=== PATIENT | female | born 1985 | race Caucasian/White ===

== ENCOUNTER 2016-10-27 09:12 | Emergency (ER) | payer MEDICAID, MEDICARE ==
[~2016-10-27] VITALS: Ht 162.6 cm; Wt 72.6 kg
[2016-10-27 09:22] VITALS: BP 140/73
--- NOTE | 2016-10-27 09:28 | NUR ---
PT AMBULATED TO BED 5 AT THIS TIME.
--- NOTE | 2016-10-27 09:28 | NUR ---
Patient ambulated to bed 05.
--- NOTE | 2016-10-27 09:37 | NUR ---
Dr. Hidalgo evaluating patient at bedside.
--- NOTE | 2016-10-27 09:39 | NUR ---
PT CAME TO ER DUE TO LLQ ABD PAIN X2 DAYS WITH VAGINAL DISHARGE AND ODOR X2 MONTHS;PT STATES PAIN COMES AND GO;PAIN SCALE OF 8/10;NON RADIATING PAIN;DENIES CP/SOB/COUGH/N/V/F AT THIS TIME;AAOX4'NO ACUYTE DISTRESS NOTED AT THIS TIME;HOB ELEVATED;NEEDS ATTENDED;SAFETY MEASURES DONE;DR YORK AT BEDSIDE.
[2016-10-27] MEDS ORDERED: KETOROLAC 60 MG/2 ML VIAL IM ONE ×2 (09:45→10:01)
--- NOTE | 2016-10-27 10:01 | NUR ---
PT REFUSED MEDICATION;NOTIFIED DR YORK;DR DUSTIN GABRIEL TO D/C PT.
[2016-10-27 10:03] VITALS: BP 140/73
== END 2016-10-27 10:03 | disposition home or self-care (01) ==
LOC: MED 09:12
DX: R10.32 Left lower quadrant pain (principal); N89.8 Other specified noninflammatory disorders of vagina; Z88.0 Allergy status to penicillin
CPT/HCPCS: 81002; 81025; 99282; J1885

== ENCOUNTER 2020-01-03 12:16 | Emergency (ER) | payer MEDICAID, SELFPAY ==
[~2020-01-03] VITALS: Ht 162.6 cm; Wt 77.1 kg
[2020-01-03 12:30] VITALS: BP 132/79
[2020-01-03 14:47] VITALS: BP 132/79
== END 2020-01-03 14:47 | disposition home or self-care (01) ==
LOC: MED 12:16 → EEVIPCON 12:16 → MED 14:47
DX: M79.10 Myalgia, unspecified site (principal); E11.9 Type 2 diabetes mellitus without complications; R51 Headache; R43.0 Anosmia; Z88.0 Allergy status to penicillin; Z98.890 Other specified postprocedural states; Z20.828 Contact with and (suspected) exposure to other viral communicable diseases
CPT/HCPCS: 71045; 99284; U0003

== ENCOUNTER 2020-01-25 13:31 | Emergency (ER) | payer MEDICAID, SELFPAY ==
[~2020-01-25] VITALS: Ht 162.6 cm; Wt 77.1 kg
[2020-01-25 13:44] VITALS: BP 114/72
[2020-01-25 14:03] VITALS: BP 114/72
== END 2020-01-25 14:03 | disposition home or self-care (01) ==
LOC: EEVIPCON 13:31 → MED 13:31
DX: R43.8 Other disturbances of smell and taste (principal); E11.9 Type 2 diabetes mellitus without complications; Z88.0 Allergy status to penicillin; Z20.828 Contact with and (suspected) exposure to other viral communicable diseases
CPT/HCPCS: 99283; U0003

== ENCOUNTER 2020-02-04 12:06 | Emergency (ER) | payer MEDICAID, SELFPAY ==
[~2020-02-04] VITALS: Ht 165.1 cm; Wt 67.1 kg
[2020-02-04 12:21] VITALS: BP 130/75
== END 2020-02-04 13:00 | disposition home or self-care (01) ==
LOC: MED 12:06 → EEVIPCON 12:06 → MED 13:00
DX: E11.9 Type 2 diabetes mellitus without complications (principal); Z88.0 Allergy status to penicillin; Z02.89 Encounter for other administrative examinations
CPT/HCPCS: 99281